=== PATIENT | female | born 1980 | race Caucasian/White ===

== ENCOUNTER → 2016-05-22 | Outpatient (CLI) | payer BC ==
[~2016-05-22] MED LIST: FRRS300 PO; MTR600X PO; OXYC-57 PO; PRENTAB26; SERT50TA PO
== END | disposition home or self-care (01) ==
LOC: C.PATHSPEC 17:44
PROVIDERS: ATTEND Surgery
DX: D17.21 Benign lipomatous neoplasm of skin and subcutaneous tissue of right arm (principal)